=== PATIENT | male | born 1950 | race Caucasian/White ===

== ENCOUNTER 2021-05-10 15:03 | Emergency (ER) | payer MEDICARE, BC | END 2021-05-10 19:24 | disposition home or self-care (01) | LOC: CSHERS 15:03 | DX: R60.0 Localized edema (principal) | CPT/HCPCS: 99283 ==

== ENCOUNTER 2022-03-03 14:20 | Outpatient (CLI) | payer MEDICARE, BC | END 2022-03-03 14:21 | disposition home or self-care (01) | LOC: CSHRAD 14:20 | PROVIDERS: ATTEND Internal Medicine | DX: M53.3 Sacrococcygeal disorders, not elsewhere classified (principal); M47.816 Spondylosis without myelopathy or radiculopathy, lumbar region; M43.16 Spondylolisthesis, lumbar region; M16.11 Unilateral primary osteoarthritis, right hip | CPT/HCPCS: 72100 ==